=== PATIENT | male | born 1955 | race Caucasian/White ===

== ENCOUNTER 2021-02-12 17:07 | Outpatient (REF) | payer MEDICARE, SELFPAY ==
[2021-02-12 18:37] LABS: Influenza A PCR NEGATIVE (Negative); Influenza B PCR NEGATIVE (Negative); Resp Syncy Virus RNA Qual PCR NEGATIVE (Negative); SARS COV2 PCR INHOUSE POSITIVE (Negative)
== END 2021-02-12 17:08 | disposition home or self-care (01) ==
LOC: HO.LNP 17:07
PROVIDERS: Visit Provider Physician Assistant Medical
DX: J06.9 Acute upper respiratory infection, unspecified (principal); Z20.822 Contact with and (suspected) exposure to COVID-19
CPT/HCPCS: 0241U

== ENCOUNTER 2023-02-11 16:07 | Emergency (ER) | payer MEDICARE, SELFPAY ==
--- NOTE | ~2023-02-11 | XR_ITS ---
EXAMINATION: XR CHEST CLINICAL INFORMATION: Reason for Exam dyspnea, fatigue COMPARISON: None TECHNIQUE: 2 views of the chest FINDINGS: Lines and tubes: Surgical anchors in the bilateral humeral heads. Clear lungs. No pleural effusion. No pneumothorax. Normal cardiomediastinal silhouette. XR/XR chest 2V IMPRESSION: * Clear lungs.
--- NOTE | ~2023-02-11 | CT_ITS ---
EXAMINATION: CTA head and neck with contrast CLINICAL INFORMATION: Left facial numbness COMPARISON: None available. TECHNIQUE: Test bolus sequences followed by intravenous administration of contrast. Helical imaging was performed in the axial plane from the skull vertex to the thoracic inlet. Delayed postcontrast imaging of the head was also performed. The data was processed at the automation technologist workstation for generation of MIP sequences. Angled MIPs and volume rendered reformatted images were also generated at an offline 3D workstation. Stenoses are assessed in accordance with NASCET criteria unless otherwise indicated. This CT examination was performed using dose optimization techniques as appropriate, variously including the following: *Automated exposure control *Adjustment of mA and/or kV according to patient size (this includes techniques or standardized protocols for targeted exams where dose is matched to indication/reason for exam; i.e. extremities or head) *Use of iterative reconstruction technique FINDINGS: BRAIN: No acute intracranial hemorrhage or infarct. The [place]-white matter differentiation is preserved. No acute extra-axial fluid collection. No midline shift or hydrocephalus. The osseous structures are unremarkable. The paranasal sinuses and mastoid air cells are clear. CTA neck: Three-vessel aortic arch. The innominate and bilateral subclavian arteries are patent. The origins and cervical segments of the common carotid arteries as well as the common carotid artery bifurcations are patent bilaterally. There cervical segments of the internal carotid arteries are patent bilaterally. The origins and cervical segments of the vertebral arteries are patent bilaterally. No hemodynamically significant stenosis, dissection, or aneurysm. The visualized branches of the external carotid arteries are unremarkable. CTA HEAD: Mild atherosclerotic calcifications of the bilateral carotid siphons. Anterior circulation: The petrous, cavernous, and supraclinoid segments of the internal carotid arteries are patent bilaterally. The major branches of the anterior and middle cerebral arteries as well as the anterior communicating artery complex are patent. No large vessel occlusion, saccular aneurysm, or dissection. Posterior circulation: The intracranial vertebral arteries are patent. The basilar artery is normal in caliber and course. The posterior cerebral and superior cerebellar arteries arise normally from the basilar summit. Right posterior cerebral artery. No aneurysm. Soft tissues: No suspicious neck mass or cervical adenopathy. Lungs: Multifocal groundglass opacities, nonspecific and can be seen with atelectasis, small airway disease, pulmonary edema, infection/inflammation. Bones: No acute osseous abnormality. No lytic or blastic osseous lesions. Multilevel degenerative changes of the visualized spine. CT/CT angio head neck IMPRESSION: 1. No acute intracranial hemorrhage or edematous infarct. 2. No large vessel occlusion, saccular aneurysm, or dissection. 3. Multifocal groundglass opacities, nonspecific and can be seen with atelectasis, small airway disease, pulmonary edema, infection/inflammation.
[2023-02-11 16:08] VITALS: BP 181/106; PULSE 86; RESP 18; TEMP 36.8; O2SAT 96; BMI 30.4
--- NOTE | 2023-02-11 16:09 | ED.GENADULT ---
HPI - General Adult General Chief complaint: General Medical Stated complaint: sob,fatigue Time Seen by Provider: 02/11/23 17:05 Related Data Home Medications Medication Instructions Recorded Confirmed metoprolol succinate 25 mg 12.5 mg PO DAILY 02/12/21 tablet,extended release 24 hr omeprazole 20 mg capsule,delayed 20 mg PO DAILY 02/12/21 release Allergies Allergy/AdvReac Type Severity Reaction Status Date / Time No Known Allergies Allergy Verified 02/12/21 14:31 [facility] Past Medical History Medical History (Updated 02/11/23 @ 20:45 by Shea Fraga MD) Hypertension Social History Alcohol intake: current Alcohol intake frequency: a few times a month Patient Tobacco Use Status: Never used Tobacco Smoked in Last 30 Days: No Use of substances other than those prescribed or required for medical reasons: No Any prior treatment program specific to substance use: No Advance Directives: No Advance Directives Information Provided: Yes Physical Exam ED Vital Signs: Vital Signs - 24 hr 02/11/23 16:08 02/11/23 17:28 02/11/23 19:35 Temperature 98.2 F 98.1 F Pulse Rate 86 73 67 Respiratory Rate 18 18 20 Blood Pressure 181/106 H 132/66 Pulse Oximetry 96 94 94 Oxygen Delivery Method Room Air Room Air Room Air 02/11/23 19:35 02/11/23 19:49 Temperature 98.0 F Pulse Rate 70 Respiratory Rate 16 Blood Pressure 136/85 169/99 H Pulse Oximetry 97 Oxygen Delivery Method Room Air BMI result Body Mass Index 30.4 Course Course Course Narrative: This is a rapid medical exam: Additional HPI, ROS, PE not included below will be deferred to primary provider. Patient is a 67-year-old male with history of HTN, high cholesterol presenting to the emergency department with complaint of shortness of breath for the past few days. Reports cough only with taking deep breaths, denies cough otherwise. Denies fever. Reports intermittent chest pain, also reports that the left side of his face feels tight intermittently, and complains of fatigue. states patient has been napping more than normal. Plan: EKG, labs, CXR Medications Administered Discontinued Medications Generic Name Dose Route Start Last Admin Trade Name Freq PRN Reason Stop Dose Admin Iohexol 100 ml 02/11/23 17:48 02/11/23 17:49 Iohexol 350 Mg/Ml 100 Ml Infus..Btl IV 02/11/23 17:49 70 ml ONCE ONE Administration Medical Decision Making Lab Data 02/11/23 16:36 02/11/23 16:36 Labs: Lab Results 02/11/23 Range/Units 16:36 WBC 6.8 (4.8-10.8) X10*3/uL RBC 5.36 (4.60-5.80) X10*6/uL Hgb 15.8 (14.0-18.0) g/dl Hct 46.9 (42.0-52.0) % MCV 87.5 (80.0-98.0) fL MCH 29.5 (27.0-33.0) pg MCHC 33.7 (31.0-36.0) g/dl RDW 13.9 (11.0-16.0) % Plt Count 229 (160-400) X10*3/uL MPV 10.4 (9.4-12.4) fL Immature Gran % (Auto) 0.3 (0.0-0.4) % Neut % (Auto) 53.6 (45-73) % Lymph % (Auto) 27.5 (20-40) % [place] % (Auto) 10.6 (2-11) % Eos % (Auto) 6.4 H (0-4) % Baso % (Auto) 1.6 (0-2) % Lymph # (Auto) 1.9 (1.2-4.9) X10*3/uL [place] # (Auto) 0.7 (0.1-1.2) X10*3/uL Eos # (Auto) 0.4 (0.0-0.4) X10*3/uL Baso # (Auto) 0.1 (0.0-0.2) X10*3/uL Abs Immat Gran (auto) 0.02 (0.00-0.03) X10*3/uL Absolute Neuts (auto) 3.6 (2.0-8.3) x10*3/uL Absolute Nucleated RBC 0.000 (0.0-0.012) X10*3/uL Nucleated RBC % (auto) 0.0 (0.0-0.2) /100WBC PT 11.1 (11.1-13.3) SEC INR 0.9 (0.9-1.1) D-Dimer High Sensitivty < 150 NG/ML Sodium 143 (135-145) mmol/L Potassium 3.8 (3.3-5.1) mmol/L Chloride 112 H (96-108) mmol/L Carbon Dioxide 22 (22-29) mmol/L Anion Gap 13 (12-20) BUN 16 (9-16) mg/dL Creatinine 0.99 (0.5-1.4) mg/dL Estim Creat Clear Calc 85.5 Estimated GFR > 60 Random Glucose 147 H (60-115) mg/dL Calcium 9.4 (8.4-10.2) mg/dL Total Bilirubin 0.6 (0.0-1.0) mg/dL AST 21 (5-37) U/L ALT 33 (0-40) U/L Alkaline Phosphatase 105 (39-117) U/L Troponin I High Sens < 2.7 (<3.5-35.0) ng/L B-Natriuretic Peptide < 10 (<100) pg/mL Total Protein 7.3 (6.5-8.0) g/dL Albumin 4.3 (3.5-5.0) g/dL COVID-19 (ENRIQUE) Negative (Negative) COVID-19 Clin Com See Note Influenza Type A (DELMAR) Negative (Negative) Influenza Type B (DELMAR) Negative (Negative) Influenza A & B Note See Note Discharge Plan Discharge Clinical Impression: Viral illness Patient Disposition: Home, Self-Care Instructions: Viral Syndrome (ED) Additional Instructions: Please follow-up with your primary care physician tomorrow. If you have any worsening or new symptoms, please return to the emergency room or call 911 Prescriptions: No Action omeprazole 20 mg capsule,delayed release(DR/EC) 20 mg PO DAILY metoprolol succinate 25 mg tablet extended release 24 hr 12.5 mg PO DAILY Interventions: ED Discharge Assessment Last Done: 02/11/23 21:10 Discharge Date/Time: 02/11/23 21:11
--- NOTE | 2023-02-11 16:12 | ECG_ITS ---
Test Reason : SOB Blood Pressure : / mmHG Vent. Rate : 069 BPM Atrial Rate : 069 BPM P-R Int : 156 ms QRS Dur : 088 ms QT Int : 400 ms P-R-T Axes : 033 -04 041 degrees QTc Int : 428 ms Normal sinus rhythm Normal ECG When compared with ECG of 01-MAY-2002 09:48, Heart rate has decreased Referred By: Chandrika Nowak Electronically Signed By:SERGE JUAN MD
[2023-02-11 16:45] LABS: MANUAL DIFF FLAG NO
[2023-02-11 16:47] LABS: Basophils Absolute Auto 0.1 X10*3/uL (0.0-0.2); Basophils Percent Auto 1.6 % (0-2); Eosinophils Absolute Auto 0.4 X10*3/uL (0.0-0.4); Eosinophils Percent Auto 6.4 % (0-4); Hematocrit 46.9 % (42.0-52.0); Hemoglobin 15.8 g/dl (14.0-18.0); Imm Gran Abs Auto 0.02 X10*3/uL (0.00-0.03); Imm Gran Pct Auto 0.3 % (0.0-0.4); Lymphocytes Absolute Auto 1.9 X10*3/uL (1.2-4.9); Lymphocytes Percent Auto 27.5 % (20-40); Mean Corpuscular HGB Conc 33.7 g/dl (31.0-36.0); Mean Corpuscular Hemoglobin 29.5 pg (27.0-33.0); Mean Corpuscular Volume 87.5 fL (80.0-98.0); Mean Platelet Volume 10.4 fL (9.4-12.4); Monocytes Absolute Auto 0.7 X10*3/uL (0.1-1.2); Monocytes Percent Auto 10.6 % (2-11); Neutrophils Absolute Auto 3.6 x10*3/uL (2.0-8.3); Neutrophils Percent Auto 53.6 % (45-73); Platelet Count 229 X10*3/uL (160-400); Red Blood Count 5.36 X10*6/uL (4.60-5.80); Red Cell Distribution Width 13.9 % (11.0-16.0); White Blood Count 6.8 X10*3/uL (4.8-10.8)
[2023-02-11 16:54] LABS: INTERNATIONAL NORM RATIO 0.9 (0.9-1.1); Prothrombin Time 11.1 SEC (11.1-13.3)
[2023-02-11 17:02] LABS: Alanine Aminotransferase 33 U/L (0-40); Albumin Level 4.3 g/dL (3.5-5.0); Alkaline Phosphatase 105 U/L (39-117); Anion Gap 13 (12-20); Aspartate Amino Transferase 21 U/L (5-37); Bilirubin Total 0.6 mg/dL (0.0-1.0); Blood Urea Nitrogen 16 mg/dL (9-16); Calcium 9.4 mg/dL (8.4-10.2); Carbon Dioxide 22 mmol/L (22-29); Chloride 112 mmol/L (96-108); Creatinine Clr Calc Pharmacy 85.5; Estimated Glomerular Filt Rate > 60; Glucose Random 147 mg/dL (60-115); Potassium 3.8 mmol/L (3.3-5.1); Sodium 143 mmol/L (135-145); Total Protein 7.3 g/dL (6.5-8.0)
[2023-02-11 17:07] LABS: IDNOW Serial# BCCEAD1C; Influenza A Negative (Negative); Influenza B2 Negative (Negative)
[2023-02-11 17:08] LABS: B Type Natriuretic Peptide < 10 pg/mL (<100); COVID-19 Test Negative (Negative); IDNOW Serial# 08D9AD1C
[2023-02-11 17:13] LABS: Troponin-I High Sensitivity < 2.7 ng/L (<3.5-35.0)
--- NOTE | 2023-02-11 17:18 | ED_ITS ---
HPI - General Adult General Chief complaint: General Medical Stated complaint: sob,fatigue Time Seen by Provider: 02/11/23 17:05 Source: patient and family Mode of arrival: ambulatory Limitations: no limitations History of Present Illness HPI narrative: Patient comes to the emergency room with multiple complaints. Patient states that for 6+ months he has had shortness of breath with ambulation. However, he noted that over the last 2 days he was worse. Patient states that for several days he has had intermittent chest pain. At this time, patient has no chest pain at all. Also, patient reported 1 episode of facial numbness tingling on the left side lasting for a few minutes and self resolved. Patient denies any weakness in upper lower extremities, no facial drooping or slurred speech. Related Data Home Medications Medication Instructions Recorded Confirmed metoprolol succinate 25 mg 12.5 mg PO DAILY 02/12/21 tablet,extended release 24 hr omeprazole 20 mg capsule,delayed 20 mg PO DAILY 02/12/21 release Allergies Allergy/AdvReac Type Severity Reaction Status Date / Time No Known Allergies Allergy Verified 02/12/21 14:31 Review of Systems 2 Review of Systems: Constitutional : No Weight loss, No Fever, No Chills, No Night Sweats, No Fatigue, No Malaise ENT/Mouth : No Hearing loss, No Ear Pain, No Nasal Congestion, No Sinus Pain, No Hoarseness, No sore throat, No Rhinorrhea, No Swallowing Difficulty Eyes: No Eye Pain, No Swelling, No Redness, No Foreign Body, No Discharge, No Vision Changes Cardiovascular : No Chest Pain, denies lower extremity edema or palpitations Respiratory : No Cough, No Sputum, No Wheezing, No Smoke Exposure, complaining of chronic dyspnea with exertion 6+ months Gastrointestinal : No Nausea, No Vomiting, No Diarrhea, No Constipation, No abdominal Pain, No Hematochezia, No Melena Genitourinary : no irregular bleeding, No Dysuria, No Urinary Frequency, No Hematuria, No Urinary Incontinence, No Urgency, No Flank Pain, No Urinary Flow Changes, No Hesitancy Musculoskeletal : No joint pain, No Myalgias, No Joint Swelling Skin : No Skin Lesions, No rash Neuro : No Weakness, No Numbness, complaining of 1 episode of facial paresthesias, No Loss of Consciousness, No Dizziness, No Headache Psych : No Anxiety/Panic, No Depression, No SI/HI/AH/VH, No Social Issues, Heme/Lymph: No Bruising, No Bleeding,No Lymphadenopathy Endocrine : No Polyuria, No Polydipsia, No Temperature Intolerance [facility] Past Medical History Medical History (Updated 02/11/23 @ 20:45 by Shea Fraga MD) Hypertension Social History Alcohol intake: current Alcohol intake frequency: a few times a month Patient Tobacco Use Status: Never used Tobacco Smoked in Last 30 Days: No Use of substances other than those prescribed or required for medical reasons: No Any prior treatment program specific to substance use: No Advance Directives: No Advance Directives Information Provided: Yes Physical Exam ED Vital Signs: Vital Signs - 24 hr 02/11/23 16:08 02/11/23 17:28 02/11/23 19:35 Temperature 98.2 F 98.1 F Pulse Rate 86 73 67 Respiratory Rate 18 18 20 Blood Pressure 181/106 H 132/66 Pulse Oximetry 96 94 94 Oxygen Delivery Method Room Air Room Air Room Air 02/11/23 19:35 02/11/23 19:49 Temperature 98.0 F Pulse Rate 70 Respiratory Rate 16 Blood Pressure 136/85 169/99 H Pulse Oximetry 97 Oxygen Delivery Method Room Air BMI result Body Mass Index 30.4 Const Other: Appearance: Alert. Oriented X3. No acute distress. Eyes: Pupils equal, round and reactive to light. ENT: Pharynx normal. Neck: Normal inspection. Neck supple. No lymph nodes noted. No crepitus CVS: Normal heart rate and rhythm. Pulses normal. Normal S1 and S2 Respiratory: No respiratory distress. Breath sounds normal. No Wheezing. No rales Abdomen: Soft and nontender. No rigidity. No distention. Skin: Skin warm and dry. Normal skin color. Normal skin turgor. Extremities: No lower extremity edema. No Lacerations. No Rash Neuro: Oriented X 3. No motor deficit. No sensory deficit. Moving all extremities. No slurred speech. CN 2 through 12 grossly intact Psych: calm, cooperative, normal affect Medications Administered Discontinued Medications Generic Name Dose Route Start Last Admin Trade Name Freq PRN Reason Stop Dose Admin Iohexol 100 ml 02/11/23 17:48 02/11/23 17:49 Iohexol 350 Mg/Ml 100 Ml Infus..Btl IV 02/11/23 17:49 70 ml ONCE ONE Administration Medical Decision Making Medical Decision Making MDM Narrative: -my interpretation of EKG: Normal sinus rhythm, heart rate 69, no ST segment depression or elevation, no T-wave inversion, QTC 428 -my interpretation of labs, normal hematology, chemistry unremarkable, troponin negative, BNP less than 10, D-dimer negative less than 150 -wells criteria for pulmonary embolism 0 -my interpretation of chest x-ray: No atelectasis or infiltrate -interpretation of CTA scan of the head and neck: No obvious obstructions -radiology report of CT scan of head and neck: No intracranial hemorrhage or large vessel occlusion. Also, there is multifocal ground-glass opacities that was seen at the top of the lungs. Patient does have any signs of pulmonary edema. Likely this is secondary to a viral illness. Chest x-ray did not show any obvious abnormality. -patient was ambulated around the emergency room, patient's oxygen saturation remained above 96% walking. Patient felt well throughout the entire walk. Patient did become a bit tachypneic when he arrived back to his room. However, oxygen saturation never dropped. Patient did not have any wheezing and patient recovered fairly quickly. -I discussed with the patient that overall he may have a viral syndrome. Patient tested negative for COVID, influenza. Differential Diagnosis Differential Diagnoses: The differential diagnosis associated with the presentation includes (Viral illness, COVID, influenza, pneumonia, PE) Admission/Observation Consideration of admission/observation: Escalation of care including admission/observation considered (Given patient's age and history and symptoms, patient was considered on arrival) Lab Data [facility] Lab Attestation statement: I reviewed the patient's lab results. 02/11/23 16:36 02/11/23 16:36 Labs: Lab Results 02/11/23 Range/Units 16:36 WBC 6.8 (4.8-10.8) X10*3/uL RBC 5.36 (4.60-5.80) X10*6/uL Hgb 15.8 (14.0-18.0) g/dl Hct 46.9 (42.0-52.0) % MCV 87.5 (80.0-98.0) fL MCH 29.5 (27.0-33.0) pg MCHC 33.7 (31.0-36.0) g/dl RDW 13.9 (11.0-16.0) % Plt Count 229 (160-400) X10*3/uL MPV 10.4 (9.4-12.4) fL Immature Gran % (Auto) 0.3 (0.0-0.4) % Neut % (Auto) 53.6 (45-73) % Lymph % (Auto) 27.5 (20-40) % [place] % (Auto) 10.6 (2-11) % Eos % (Auto) 6.4 H (0-4) % Baso % (Auto) 1.6 (0-2) % Lymph # (Auto) 1.9 (1.2-4.9) X10*3/uL [place] # (Auto) 0.7 (0.1-1.2) X10*3/uL Eos # (Auto) 0.4 (0.0-0.4) X10*3/uL Baso # (Auto) 0.1 (0.0-0.2) X10*3/uL Abs Immat Gran (auto) 0.02 (0.00-0.03) X10*3/uL Absolute Neuts (auto) 3.6 (2.0-8.3) x10*3/uL Absolute Nucleated RBC 0.000 (0.0-0.012) X10*3/uL Nucleated RBC % (auto) 0.0 (0.0-0.2) /100WBC PT 11.1 (11.1-13.3) SEC INR 0.9 (0.9-1.1) D-Dimer High Sensitivty < 150 NG/ML Sodium 143 (135-145) mmol/L Potassium 3.8 (3.3-5.1) mmol/L Chloride 112 H (96-108) mmol/L Carbon Dioxide 22 (22-29) mmol/L Anion Gap 13 (12-20) BUN 16 (9-16) mg/dL Creatinine 0.99 (0.5-1.4) mg/dL Estim Creat Clear Calc 85.5 Estimated GFR > 60 Random Glucose 147 H (60-115) mg/dL Calcium 9.4 (8.4-10.2) mg/dL Total Bilirubin 0.6 (0.0-1.0) mg/dL AST 21 (5-37) U/L ALT 33 (0-40) U/L Alkaline Phosphatase 105 (39-117) U/L Troponin I High Sens < 2.7 (<3.5-35.0) ng/L B-Natriuretic Peptide < 10 (<100) pg/mL Total Protein 7.3 (6.5-8.0) g/dL Albumin 4.3 (3.5-5.0) g/dL COVID-19 (ENRIQUE) Negative (Negative) COVID-19 Clin Com See Note Influenza Type A (DELMAR) Negative (Negative) Influenza Type B (DELMAR) Negative (Negative) Influenza A & B Note See Note Independent Interpretation I performed an independent interpretation of an: CT Scan Radiology Impression Discussion of test interpretation with radiology: I have reviewed the radiologist's reading. Radiologist Impression: FINDINGS: BRAIN: No acute intracranial hemorrhage or infarct. The [place]-white matter differentiation is preserved. No acute extra-axial fluid collection. No midline shift or hydrocephalus. The osseous structures are unremarkable. The paranasal sinuses and mastoid air cells are clear. CTA neck: Three-vessel aortic arch. The innominate and bilateral subclavian arteries are patent. The origins and cervical segments of the common carotid arteries as well as the common carotid artery bifurcations are patent bilaterally. There cervical segments of the internal carotid arteries are patent bilaterally. The origins and cervical segments of the vertebral arteries are patent bilaterally. No hemodynamically significant stenosis, dissection, or aneurysm. The visualized branches of the external carotid arteries are unremarkable. CTA HEAD: Mild atherosclerotic calcifications of the bilateral carotid siphons. Anterior circulation: The petrous, cavernous, and supraclinoid segments of the internal carotid arteries are patent bilaterally. The major branches of the anterior and middle cerebral arteries as well as the anterior communicating artery complex are patent. No large vessel occlusion, saccular aneurysm, or dissection. Posterior circulation: The intracranial vertebral arteries are patent. The basilar artery is normal in caliber and course. The posterior cerebral and superior cerebellar arteries arise normally from the basilar summit. Right posterior cerebral artery. No aneurysm. Soft tissues: No suspicious neck mass or cervical adenopathy. Lungs: Multifocal groundglass opacities, nonspecific and can be seen with atelectasis, small airway disease, pulmonary edema, infection/inflammation. Bones: No acute osseous abnormality. No lytic or blastic osseous lesions. Multilevel degenerative changes of the visualized spine. CT/CT angio head neck IMPRESSION: 1. No acute intracranial hemorrhage or edematous infarct. 2. No large vessel occlusion, saccular aneurysm, or dissection. 3. Multifocal groundglass opacities, nonspecific and can be seen with atelectasis, small airway disease, pulmonary edema, infection/inflammation. Critical Care Time Critical Care Time Critical Care Time: Yes Total Critical Care Time: 60 Attestation: I have personally provided critical care time. Time includes review of lab data, radiology results, discussion with consultants, and monitoring for potential decompensation. Intervention performed as documented. Discharge Plan Discharge Clinical Impression: Viral illness Patient Disposition: Home, Self-Care Instructions: Viral Syndrome (ED) Additional Instructions: Please follow-up with your primary care physician tomorrow. If you have any worsening or new symptoms, please return to the emergency room or call 911 Prescriptions: No Action omeprazole 20 mg capsule,delayed release(DR/EC) 20 mg PO DAILY metoprolol succinate 25 mg tablet extended release 24 hr 12.5 mg PO DAILY
[2023-02-11 17:28] VITALS: BP 132/66; PULSE 73; RESP 18; O2SAT 94
[2023-02-11] MEDS: iohexoL 350 MG/ML 100 ML INFUS..BTL IV (17:49)
[2023-02-11 19:35] VITALS: BP 136/85; PULSE 67; RESP 20; TEMP 36.7; O2SAT 94
--- NOTE | 2023-02-11 19:45 | MHC.EDTECH ---
Per Dr Fraga order ,pt was walk around the Ed ,Patient o2 sat started at 96 % on room air when standing ,During walking Pt o2 sat remain at 96 % Provider Flakito aware ,Pt back in bed ,vitals taken .
[2023-02-11 19:49] VITALS: BP 169/99; PULSE 70; RESP 16; TEMP 36.7; O2SAT 97
[2023-02-11 20:30] LABS: D Dimer High Sensitivity < 150 NG/ML
== END 2023-02-11 21:11 | disposition home or self-care (01) ==
PROVIDERS: Registered Nurse Emergency; Emergency Provider Emergency Medicine; PCP Internal Medicine
DX: B34.9 Viral infection, unspecified (principal); R06.02 Shortness of breath; Z11.52 Encounter for screening for COVID-19; I10 Essential (primary) hypertension
CPT/HCPCS: 70496; 70498; 71046; 80053; 83880; 84484; 85025; 85379; 85610; 87502; 87635; 93005; 99284; Q9967